=== PATIENT | male | born 1990 | race Caucasian/White ===

== ENCOUNTER 2019-06-14 09:12 | Emergency (ER) | payer SELFPAY ==
[2019-06-14 10:09] VITALS: BP 111/80
[2019-06-14] MEDS ORDERED: Azithromycin TAB* 250 MG PO ONE (10:52)
[2019-06-14] MEDS ORDERED: Lidocaine 1% MPF ** 5 ML VIAL IM ONE (10:52)
[2019-06-14] MEDS ORDERED: cefTRIAXone VIAL(*) 250 MG VIAL IM ONE (10:52)
[2019-06-14] MEDS ORDERED: Lidocaine 1% MPF* 2 ML VIAL INJ ONE (11:01)
[2019-06-15 13:00] LABS: Chlamydia trachomatis NAA Negative (Negative); Neisseria gonorrhoeae (GC) NAA Negative (Negative)
--- NOTE | 2019-06-16 19:45 | UC ---
Complaint Male HPI - HPI Summary HPI Summary: 28-year-old male who states that he has been having unprotected sex with a female partner who tested positive for gonorrhea last week. He denies any symptoms however he would like to be treated. - History of Current Complaint Chief Complaint: UCGeneralIllness Stated Complaint: PERSONAL Time Seen by Provider: 06/14/19 10:36 Hx Obtained From: Patient Onset/Duration: Other - Patient is asymptomatic. Severity Initially: Mild Severity Currently: Mild Pain Intensity: 0 Pain Scale Used: 0-10 Numeric Associated Signs And Symptoms: Positive: Negative Prior STD Hx: unknown - Allergies/Home Medications Allergies/Adverse Reactions: Allergies Allergy/AdvReac Type Severity Reaction Status Date / Time No Known Allergies Allergy Verified 06/14/19 09:59 Home Medications: Home Medications NK [No Home Medications Reported] 06/14/19 [History Confirmed 06/14/19] PMH/Surg Hx/FS Hx/Imm Hx Previously Healthy: Yes - Surgical History Surgical History: None - Family History Known Family History: Positive: Unknown - Social History Alcohol Use: Occasionally Substance Use Type: None Smoking Status (MU): Never Smoked Tobacco Household Exposure Type: Cigarettes Review of Systems All Other Systems Reviewed And Are Negative: Yes Genitourinary: Positive: Other - Patient has no symptoms of illness. Is Patient Immunocompromised?: No Physical Exam Triage Information Reviewed: Yes Appearance: Well-Appearing, No Pain Distress, Well-Nourished Vital Signs: Initial Vital Signs Temp 98.2 F 06/14/19 10:00 Pulse 61 06/14/19 10:00 Resp 15 06/14/19 10:00 BP 111/80 06/14/19 10:00 Pulse Ox 100 06/14/19 10:00 Vital Signs Reviewed: Yes Musculoskeletal Exam: Normal Neurological Exam: Normal Psychological Exam: Normal Complaint Male Course/Dx - Course Course Of Treatment: The patient's urine was sent for testing for gonorrhea and chlamydia. He was given azithromycin 1 g by mouth here, as well as ceftriaxone 250 mg IM. He was advised to use condoms for sexual activity. - Differential Dx/Diagnosis Provider Diagnosis: Exposure to STD Discharge ED - Sign-Out/Discharge Documenting (check all that apply): Patient Departure All imaging exams completed and their final reports reviewed: No Studies - Discharge Plan Condition: Good Disposition: HOME Patient Education Materials: Sexually Transmitted Diseases (ED) Referrals: [facility] [Outside] [facility] [Outside] No Primary Care Phys,[facility] [Primary Care Provider] - Additional Instructions: Follow-up at the [facility] for reproductive health if any further concerns. Always use condoms. - Billing Disposition and Condition Condition: GOOD Disposition: Home
== END 2019-06-14 11:35 | disposition home or self-care (01) ==
LOC: UCCORT 09:12
DX: Z11.3 Encounter for screening for infections with a predominantly sexual mode of transmission (principal)
CPT/HCPCS: 87491; 87591; 96372; 99202; A9270-GY; G0463; J0696